=== PATIENT | female | born 1985 | race Caucasian/White ===

== ENCOUNTER 2020-07-28 10:37 | Emergency (ER) | payer OTHER ==
--- NOTE | 2020-07-28 10:50 | TELE ---
HPI - General Reason For Visit: COVID 19 TEST Time Seen by Provider: 07/28/20 10:48 History Source: Patient Exam Limitations: Clinical Condition - History of Present Illness Timing/Duration: unsure Associated Symptoms: reports: denies symptoms. denies: cough, fever/chills, loss of appetite, nausea/vomiting, shortness of breath 07/28/20 10:48 Patient with no significant past medical history present to [facility] urgent care for COVID testing due to having a group travel with friends and wants to make sure she does not have covid before traveling. Patient denies any symptoms at this time. Patient reported booking a house in [place] with a bunch of friends and wants to make sure none of them have COVID and everyone is getting tested prior to travel. Review of Systems - Review of Systems Able to Perform ROS?: Yes Limited Citizen Of [place] proficient: No Constitutional: No: Chills, Fever, Malaise HEENTM: No: Symptoms Reported, See HPI, Eye Pain, Blurred Vision, Tearing, Recent change in vision, Double Vision, Cataracts, Ear Pain, Ocular Prothesis, Ear Discharge, Nose Pain, Nose Congestion, Tinnitus, Nose Bleeding, Hearing Loss, Throat Pain, Throat Swelling, Mouth Pain, Dental Problems, Difficulty Swallowing, Mouth Swelling, Other Respiratory: No: Symptoms reported, See HPI, Cough, Orthopnea, Shortness of Breath, SOB with Exertion, SOB at Rest, Stridor, Wheezing, Productive cough, Hemoptysis, Other Cardiac (ROS): No: Symptoms Reported, See HPI, Chest Pain, Edema, Irregular Heart Rate, Lightheadedness, Palpitations, Syncope, Chest Tightness, Other ABD/GI: No: Symptoms Reported, Nausea, Vomiting Musculoskeletal: No: Symptoms Reported Integumentary: No: Symptoms Reported Neurological: No: Symptoms reported, Dizziness All Other Systems: Reviewed and Negative *Physical Exam - Physical Exam General Appearance: Yes: Nourished, Appropriately Dressed. No: Apparent Distress HEENT: positive: Normal ENT Inspection Respiratory/Chest: negative: Respiratory Distress, Accessory Muscle Use Musculoskeletal: positive: Normal Inspection Extremity: positive: Normal Inspection, Normal Range of Motion Integumentary: positive: Normal Color Neurologic: positive: Fully Oriented, Alert, Normal Mood/Affect, Normal Response, Motor Strength 03/04 - Medical Decision Making 07/28/20 10:49 Patient with no significant past medical history present to [facility] urgent care for COVID testing due to having a group travel with friends and wants to make sure she does not have covid before traveling. Patient denies any symptoms at this time. Patient reported booking a house in [place] with a bunch of friends and wants to make sure none of them have COVID and everyone is getting tested prior to travel. Patient asymptomatic at this time. Advised patient on universal precautions with handwashing make sure you sanitizers during visit. Covid test ordered as per patient's request. Patient to go to [facility] testing today Discharge Diagnosis at time of Disposition: Counseled about COVID-19 virus infection - Referrals - Patient Instructions - Discharge Disposition: HOME Condition at time of Disposition: Stable
== END 2020-07-28 10:52 | disposition home or self-care (01) ==
LOC: JVIRT 10:37
DX: Z11.59 Encounter for screening for other viral diseases (principal)
CPT/HCPCS: Q3014-GT; U0003